=== PATIENT | female | born 1950 | race Caucasian/White ===

== ENCOUNTER 2025-01-12 09:00 | Outpatient (RCR) | payer MEDICARE, OTHER, SELFPAY | END 2025-02-07 09:06 | disposition home or self-care (01) | LOC: HO.PTCHIC 09:00 | PROVIDERS: PCP Family Medicine; Visit Provider Podiatrist Foot & Ankle Surgery | DX: M76.62 Achilles tendinitis, left leg (principal); M21.6X9 Other acquired deformities of unspecified foot; L84 Corns and callosities | CPT/HCPCS: 97035; 97110; 97140; 97162 ==